=== PATIENT | female | born 1985 | race Caucasian/White ===

== ENCOUNTER 2018-06-16 16:31 | Emergency (ER) | payer SELFPAY ==
[~2018-06-16] VITALS: Ht 162.6 cm; Wt 52.6 kg
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
[2018-06-16 16:57] VITALS: BP 128/70
[2018-06-16] MEDS: predniSONE 10 MG TABLET PO ONE (17:06)
[2018-06-16] MEDS: NAPROXEN 500 MG TABLET PO STA (17:06)
[2018-06-16] MEDS: CYCLOBENZAPRINE 10 MG TABLET. PO ONE (17:07)
[2018-06-16] MEDS ORDERED: NAPR500T8 PO (18:17)
[2018-06-16] MEDS ORDERED: CYCL10TA2 PO (18:17)
--- NOTE | 2018-06-16 21:25 | RAD ---
Indication: Chronic neck pain TECHNIQUE: 2 views of the cervical spine COMPARISON: None FINDINGS: Cervical spine is in normal anatomic alignment. Atlantoaxial joint interval is preserved. No compression deformities. Prevertebral soft tissues within normal limits. Facet joints are in normal anatomic alignment. Clear lung apices. IMPRESSION: No acute findings. No significant evidence of degenerative disc disease or facet arthropathy. Electronically signed by: Dajuan Sheehan DO (06/16/2018 9:22 PM) [facility]
== END 2018-06-16 18:31 | disposition home or self-care (01) ==
LOC: ER 16:31
DX: M54.2 Cervicalgia (principal); F15.90 Other stimulant use, unspecified, uncomplicated; Z88.0 Allergy status to penicillin; Z88.1 Allergy status to other antibiotic agents
CPT/HCPCS: 72040; 99284; J7512

== ENCOUNTER 2019-03-25 04:20 | Emergency (ER) | payer SELFPAY ==
[~2019-03-25] VITALS: Ht 162.6 cm; Wt 59.9 kg
[~2019-03-25 04:20] MED LIST: CYCL10TA2 PO; NAPR500T8 PO
[2019-03-25 04:23] VITALS: BP 128/70
[2019-03-25] MEDS ORDERED: LIDOCAINE 1% PF 2 ML VIAL. INJ ONE (04:30)
--- NOTE | 2019-03-25 05:13 | PHYS DOC ---
Past Medical History Past Medical History: No Pertinent History Past Surgical History: Tonsillectomy, Tubal ligation Alcohol Use: None Drug Use: Methamphetamine Adult General Chief Complaint Chief Complaint: FOREIGNBODY EAR HPI HPI Patient is a 34 year old female who presents with complaining of a bug in her ear. Patient states she woke up with very uncomfortable feeling in her right ear with something moving in her ear and tried to remove the bug without any success. Review of Systems Review of Systems Constitutional: Denies fever or chills [] Eyes: Denies change in visual acuity, redness, or eye pain [] HENT: Denies nasal congestion or sore throat [] Respiratory: Denies cough or shortness of breath [] Cardiovascular: No additional information not addressed in HPI [] GI: Denies abdominal pain, nausea, vomiting, bloody stools or diarrhea [] : Denies dysuria or hematuria [] Musculoskeletal: Denies back pain or joint pain [] Integument: Denies rash or skin lesions [] Neurologic: Denies headache, focal weakness or sensory changes [] Endocrine: Denies polyuria or polydipsia [] All other systems were reviewed and found to be within normal limits, except as documented in this note. Current Medications Current Medications Current Medications Medications (Trade) Dose Ordered Sig/Cristin Start Time Stop Time Status Last Admin Dose Admin Lidocaine HCl (Xylocaine-Mpf 1% 2ml Vial) 2 ml 1X ONCE 03/25/19 04:30 03/25/19 04:31 DC 03/25/19 04:33 2 ML Allergies Allergies Allergies Coded Allergies Type Severity Reaction Last Updated Verified Penicillins Allergy Intermediate 06/16/18 Yes cephalexin Allergy Intermediate 06/16/18 Yes Physical Exam Physical Exam Constitutional: Well developed, well nourished, moderate distress. HENT: Normocephalic, atraumatic, right eardrum with a foreign body inside of ear Eyes: PERRLA, EOMI, conjunctiva normal, no discharge. [] Neck: Normal range of motion, no tenderness, supple, no stridor. [] Cardiovascular:Heart rate regular rhythm, no murmur [] Lungs & Thorax: Bilateral breath sounds clear to auscultation [] Neurologic: Alert and oriented X 3, no focal deficits noted. [] EKG EKG [] Radiology/Procedures Radiology/Procedures [] Course & Med Decision Making Course & Med Decision Making Evaluation of patient in ER showed 34-year-old male patient with a foreign body in right ear. She felt better with applying lidocaine. Patient already traumatized her ear and could not tolerate foreign body removal. With irrigation a small piece of foreign body came out. Patient was not able to tolerate removal of foreign body with instrument. Patient was advised to follow-up with on-call ENT. Dragon Disclaimer Dragon Disclaimer This electronic medical record was generated, in whole or in part, using a voice recognition dictation system. Departure Departure Impression: Primary Impression: Foreign body in right ear Disposition: HOME, SELF-CARE (at 0510) Condition: IMPROVED Referrals: UNKNOWN PCP NAME (PCP) CHRISTA RODRÍGUEZ MD Patient Instructions: Ear Foreign Body Additional Instructions: Use [id number] Debrox ear drop to remove the remaining foreign body from right ear Follow-up with on-call ENT or return to ER as needed MADALYN HEARN MD March 25, 2019 05:13
== END 2019-03-25 05:15 | disposition home or self-care (01) ==
LOC: ER 04:20
DX: T16.1XXA Foreign body in right ear, initial encounter (principal); Z90.89 Acquired absence of other organs; Z98.51 Tubal ligation status; X58.XXXA Exposure to other specified factors, initial encounter; Y93.89 Activity, other specified; Y92.89 Other specified places as the place of occurrence of the external cause; Y99.8 Other external cause status
CPT/HCPCS: 99282; 99284